=== PATIENT | male | born 1995 | race Caucasian/White ===

== ENCOUNTER 2017-03-14 15:18 | Emergency (ER) | payer OTHER ==
[~2017-03-14] VITALS: Ht 177.8 cm; Wt 114.0 kg
[2017-03-14 15:31] VITALS: TEMP 37.1; Ht 177.8 cm; Wt 114.0 kg
[2017-03-14] MEDS ORDERED: IBUPROFEN 200 MG TAB PO STA (15:43)
--- NOTE | 2017-03-14 15:47 | EMERGENCY ROOM VISIT NOTE ---
History First contact with patient: 15:36 Chief Complaint: KNEEPAIN Stated Complaint: KNEE INJURY History of Present Illness The patient is a 21 year old male who presents to the Emergency Room with complaints of right knee pain and right ankle pain. The patient was tailgating and playing a game. He slipped with his right leg going out in front of him. He thinks that his knee bent inwards. He is unsure how he hurt the right ankle. He is unable to bear weight on the leg. The pain is worse with any movement. He did not take anything for pain. He denies any previous injury to either the right knee or ankle. He denies any other injuries. Review of Systems 6 system review negative. Please see pertinent positives in the history of present illness section. Past Medical/Surgical History Otherwise healthy Social History Smoking Status: Never Smoker Alcohol Use: occasionally Current/Historical Medications Scheduled PRN Oxycodone/Acetaminophen 5MG/325MG (Percocet 5MG/325MG), 1 TAB PO Q4H PRN for Pain Physical Exam Vital Signs Date Time Temp Pulse Resp B/P (MAP) Pulse Ox O2 Delivery O2 Flow Rate FiO2 03/14/17 17:34 108 18 126/82 94 Room Air 03/14/17 15:31 37.1 71 18 155/90 99 Room Air Physical Exam VITALS: Vitals are noted on the nurse's note and reviewed by myself. Vital signs stable. GENERAL: 21-year-old male, in no acute distress, nondiaphoretic, well-developed well-nourished. SKIN: The skin was without rashes, or bruising. There is no tenting of the skin. Capillary reflex less than 2 seconds. HEAD: Normocephalic atraumatic. MUSCULOSKELETAL: RIGHT KNEE: Mild edema noted. Slight tenderness to palpation over the medial aspect of the knee. Negative anterior and posterior drawer test. Pain with valgus stress. RIGHT ANKLE: Diffuse edema over the lateral malleolus and to a lesser extent over the medial malleolus. Tenderness to palpation over the lateral malleolus. Significant pain with varus stress. Negative anterior drawer. DP pulse +2. No tenderness over the fifth metatarsal. No tenderness over the proximal tib/ fib. NEURO: Patient was alert and oriented to person place and time. Normal sensation to touch. No focal neurological deficits. Medical Decision & Procedures ER Provider Diagnostic Interpretation: R knee xray IMPRESSION: 1. No evidence of fracture 2. Small patellar joint effusion Electronically signed by: Farzad Wallis M.D. 03/14/2017 4:22 PM Dictated Date/Time: 03/14/2017 4:21 PM The status of this report is Signed. Draft = Not yet reviewed or approved by Radiologist. Signed = Reviewed and approved by Radiologist. <AttendingPhy></AttendingPhy> <FamilyPhy>No Doctor, Assigned</FamilyPhy> < PrimaryPhy>No Doctor, Assigned</PrimaryPhy> <UnitNumber>[id number]</UnitNumber> <VisitNumber>[id number]</VisitNumber> <PatientName>TERENCEFILIBERTO</PatientName> <DateOfBirth>1995</DateOfBirth> <Location>[facility]</Location> <ServiceDate></ServiceDate> <MNE>ESINDI</MNE> <OrderingPhy>ED, PROTOCOL</OrderingPhy> < OrderingPhyMNE>f rep ord dr keith</OrderingPhyMNE> <DictatingPhyMNE>f rep dict dr keith</DictatingPhyMNE> <CCListMNE>f rep ct sharone</CCListMNE> <AdmittingPhyMNE>f pt admit dr keith</AdmittingPhyMNE> <AttendingPhyMNE>f pt attend dr keith</ AttendingPhyMNE> <ConsultingPhyMNE>f pt consult dr keith</ConsultingPhyMNE> <FamilyPhyMNE>f pt fam dr keith</FamilyPhyMNE> <OtherPhyMNE>f pt other dr keith</OtherPhyMNE> < PrimaryPhyMNE>f pt prim care dr keith</PrimaryPhyMNE> <ReferringPhyMNE>f pt referring dr keith</ReferringPhyMNE> ankle xray IMPRESSION: 1. Spiral fracture of the distal fibula 2. Equivocal minimal widening of the medial ankle mortise Electronically signed by: Farzad Wallis M.D. 03/14/2017 4:23 PM Dictated Date/Time: 03/14/2017 4:22 PM The status of this report is Signed. Draft = Not yet reviewed or approved by Radiologist. Signed = Reviewed and approved by Radiologist. Medications Administered Medications (Trade) Dose Ordered Sig/Cher Route Start Time Stop Time Status Last Admin Dose Admin Ibuprofen (Advil Tab) 800 mg NOW STAT PO 03/14/17 15:43 03/14/17 15:45 DC 03/14/17 16:18 800 MG Oxycodone/ Acetaminophen (Percocet 5-325mg Tab) 1 tab NOW STAT PO 03/14/17 16:52 03/14/17 16:54 DC 03/14/17 17:02 1 TAB ED Course The patient was seen and examined Radiographs were ordered He was given Motrin 800 mg for pain The patient was reassessed. He was still having some pain. He was ordered 1 dose of Percocet The radiographs were reviewed. The findings were discussed with the patient The patient was placed in a sugar tong short leg Ortho-Glass splint. He is instructed on these of crutches. We thoroughly discussed discharge instructions, and he was discharged in good condition Medical Decision Differential diagnosis: Ligamentous injury, fracture, contusion This patient is a 21-year-old male that presents to emergency department with complaints of right knee and ankle pain after sustaining a fall prior to arrival. His ankle pain was worse than his knee pain. He did have significant edema of the ankle. He is neurovascularly intact. Radiographs of the knee and ankle were performed. They confirm a distal fibula fracture in addition to some widening of the medial ankle mortise. For this reason, the patient was put in a sugar tong short leg or the glass splint. He is not from the area. He was given copies of his radiographs. He was instructed on the use of crutches. He will follow-up with orthopedics in his hometown. He was instructed to call within the next 48 hours to be seen within the next 3-4 days. He is in agreement. He was given a course of narcotics. He was also instructed to take ibuprofen for pain. No weightbearing on the leg until follow -up. The patient was discharged in good condition. This chart was completed in part utilizing [employer] Voice Recognition software. Attempts were made to minimize the grammatical errors, random word insertions, pronoun errors and incomplete sentences. Any formal questions or concerns about the content, text or information contained within the body of this dictation should be directly addressed to the provider for clarification. Medication Reconcilliation Current Medication List: was personally reviewed by me Impression Primary Impression: Fracture of distal end of fibula Departure Information Dispostion Home / Self-Care Condition GOOD Prescriptions Oxycodone/Acetaminophen 5MG/325MG (PERCOCET 5MG/325MG) Tab 1 TAB PO Q4H Y for Pain, #15 TAB For Initial Treatment Prov: Alexus Finch PA-C 03/14/17 Patient Instructions My [facility] Additional Instructions You were evaluated in the emergency department today for ankle and knee pain. You did break your right ankle. It is very important for you to follow-up with an orthopedic surgeon as soon as possible. Please call Thursday morning to the orthopedic doctor of your choice. No weightbearing on the right leg until seen by orthopedics. Use crutches to get around. Keep the splint in place. Do not get it wet. Ice intermittently over the next 72 hours. Elevate the leg as much as possible above the heart. Ibuprofen 600 mg every 6 hours Percocet 1-2 tabs every 4 hours for severe pain. Do not drink alcohol or drive while taking this medication. This may be taken with ibuprofen, but avoid Tylenol. Please take a stool softener [id number] such as Colace twice daily while taking this medication as it may cause constipation. Please return to the emergency department with any new or concerning symptoms. Please also call the emergency department if you are unable to get into an orthopedic doctor early next week.
--- NOTE | 2017-03-14 16:23 | DIAGNOSTIC IMAGING REPORT ---
R KNEE 1 OR 2 VIEWS ROUTINE CLINICAL HISTORY: Right knee swelling COMPARISON: None. DISCUSSION: No fractures or dislocations are visualized. There is a small suprapatellar joint effusion. IMPRESSION: 1. No evidence of fracture 2. Small patellar joint effusion Electronically signed by: Farzad Wallis M.D. 03/14/2017 4:22 PM Dictated Date/Time: 03/14/2017 4:21 PM
--- NOTE | 2017-03-14 16:24 | DIAGNOSTIC IMAGING REPORT ---
R ANKLE MIN 3 VIEWS ROUTINE CLINICAL HISTORY: Right ankle pain. COMPARISON: None. DISCUSSION: There is a spiral fracture of the distal fibula. There is 4 mm of posterior displacement. No tibial fractures are visualized. There is equivocal minimal widening of the medial ankle mortise. IMPRESSION: 1. Spiral fracture of the distal fibula 2. Equivocal minimal widening of the medial ankle mortise Electronically signed by: Farzad Wallis M.D. 03/14/2017 4:23 PM Dictated Date/Time: 03/14/2017 4:22 PM
[2017-03-14] MEDS ORDERED: OXYCODONE/ACETAMINOPHEN 5-325 TAB PO STA (16:52)
[2017-03-14] MEDS ORDERED: OXYC-57 PO (17:18)
[2017-03-14 17:34] VITALS: BP 126/82; PULSE 108; O2SAT 94
== END 2017-03-14 17:37 | disposition home or self-care (01) ==
LOC: C.EDD 15:22
DX: S82.831A Other fracture of upper and lower end of right fibula, initial encounter for closed fracture (principal); W01.0XXA Fall on same level from slipping, tripping and stumbling without subsequent striking against object, initial encounter; Y92.89 Other specified places as the place of occurrence of the external cause